=== PATIENT | female | born 1970 | race Caucasian/White ===

== ENCOUNTER → 2016-06-01 | Outpatient (CLI) | payer MEDICAID ==
--- NOTE | 2016-06-02 07:52 | XR ---
EXAMINATION TYPE: XR foot complete RT DATE OF EXAM: 06/01/2016 11:56 AM COMPARISON: NONE HISTORY: Pain Severe arthropathy and hypertrophic change first MTP joint. Calcaneal spur noted.. There is no acute fracture or dislocation. IMPRESSION: 1. No acute fracture or dislocation. If symptoms persist, follow-up exam in 7 to 10 days could be ob tained.
--- NOTE | 2016-06-02 07:54 | XR ---
EXAM TYPE: LUMBAR SPINE X RAY SERIES COMPARISON: NONE HISTORY: Back and foot pain with lower leg numbness FINDINGS: Alignment is anatomic. The pedicles are intact. The transverse processes are intact. There is no s pondylolysis or spondylolisthesis. There is sclerosis of the SI joints. The right suggestive of sacroiliitis. Vascular calcifications ar e noted. There is multilevel hypertrophic change and mild degenerative disc disease. Sclerosis of the pars interarticularis noted at L5 bilaterally without evidence of obvious defect. IMPRESSION: 1. Multilevel degenerative disc disease consider follow-up MRI. 2. Sacroiliitis
== END | disposition home or self-care (01) ==
LOC: RADXRYALE 10:53
PROVIDERS: ATTEND Internal Medicine
DX: M51.36 Other intervertebral disc degeneration, lumbar region (principal); M46.1 Sacroiliitis, not elsewhere classified; M79.671 Pain in right foot
CPT/HCPCS: 72110

== ENCOUNTER → 2016-06-15 | Outpatient (CLI) | payer MEDICAID ==
--- NOTE | 2016-06-16 07:47 | CT ---
EXAMINATION TYPE: CT lumbar spine w con DATE OF EXAM: 06/15/2016 8:06 PM COMPARISON: NONE HISTORY: Right leg numbness below knee. CT DLP: 983.00 mGycm Automated exposure control for dose reduction was used. CONTRAST: CT scan of the lumbar is performed with IV Contrast, patient injected with 100 mL of Omnipaque 300. Enhanced CT of the lumbar spine was performed. Bone and soft tissue window settings are submitted as well as coronal and sagittal reconstructions. There is a large, 3.8 x 2.1 x 2.1 cm right adrenal mass. This has a mean Hounsfield value of 53.6 Ina nsfield units. This is not the classic appearance of a benign adenoma. There is moderate atheromatous calcification of the igiugig vessels. Paraspinal soft tissues are other maynard normal. The bilateral lysis at L5 with a grade 1 spondylolisthesis of L5 on S1. Vertebral body height and ali gnment otherwise well maintained. At T12-L1, no discrete abnormality is seen. L1-L2: Normal disc space height. No disc herniation protrusion or central stenosis. No facet joint arthropathy. No evidence for foraminal encroachment. L2-L3: There is a mild, diffuse disc displacement. This is effacing the thecal sac. The intervertebra l foramina are maintained. The facets are unremarkable. L3-L4: There is a mild, diffuse disc displacement. The intervertebral foramina are well maintained. T here is minimal facet arthropathy. L4-L5: There is a diffuse disc displacement. The intervertebral foramina are reasonably well-maintain ed. There is moderate facet arthropathy. L5-S1: There is disc space loss. There is a bilateral lysis at L5. There is a grade 1 spondylolisthes is of L5 on S1. There is a prominent pseudodisc. The intervertebral foramina appear reasonably well-m aintained. IMPRESSION: 1. Bilateral lysis of L5 with a grade 1 spondylolisthesis of L5 on S1. 2. No significant compressive discopathy or neural compression. 3. Mild degenerative disc disease extending from L2-3 through L4-5.
== END | disposition home or self-care (01) ==
LOC: RADCTMAIN 19:30
PROVIDERS: ATTEND Internal Medicine
DX: M43.17 Spondylolisthesis, lumbosacral region (principal); M51.36 Other intervertebral disc degeneration, lumbar region
CPT/HCPCS: 72132; Q9967

== ENCOUNTER → 2017-01-25 | Outpatient (CLI) | payer MEDICAID ==
--- NOTE | 2017-01-25 11:33 | MM ---
Reason for exam: clinical finding. Last mammogram was performed 5 years and 10 months ago. History: Patient has history of other cancer at age 24. Physical Findings: Nurse Summary: 1 x 1cm nodule in the right breast at 10 o'clock (nurse ts). MG Diagnostic Mammo w CAD JANAY Bilateral CC and MLO view(s) were taken. Prior study comparison: March 31, 2011, bilateral digital screening mammo w/CAD. April 12, 2009, bilateral digital screening mammogram. There are scattered fibroglandular densities. Lucent mass deep to the palpable BB marker at 10 o'clock representing a benign sonographic cyst. No suspicious abnormality. These results were verbally communicated with the patient and result sheet given to the patient on 01/25/17. ASSESSMENT: Benign, BI-RAD 2 RECOMMENDATION: Routine screening mammogram of both breasts in 1 year.
--- NOTE | 2017-01-25 11:34 | USB ---
Reason for exam: clinical finding. History: Patient has history of other cancer at age 24. US Breast Limited LT Left breast ultrasound demonstrates a 0.6 x 0.6 x 0.4cm oval, cystic lesion at 9:30-10 o'clock at BB. These results were verbally communicated with the patient and result sheet given to the patient on 01/25/17. ASSESSMENT: Benign, BI-RAD 2 RECOMMENDATION: Routine screening mammogram of both breasts in 1 year.
== END | disposition home or self-care (01) ==
LOC: RADMAMWWP 10:00
PROVIDERS: ATTEND Internal Medicine
DX: N63 Unspecified lump in breast (principal)
CPT/HCPCS: 76642; G0204

== ENCOUNTER 2017-05-27 20:11 | Emergency (ER) | payer MEDICAID ==
[2017-05-27 20:17] VITALS: TEMP 97.2
--- NOTE | 2017-05-27 20:37 | ED ---
General Adult HPI - General Chief complaint: Chest Pain Stated complaint: chest pain/back pain Time Seen by Provider: 05/27/17 20:17 Source: patient, RN notes reviewed Mode of arrival: ambulatory Limitations: no limitations - History of Present Illness Initial comments: 46-year-old female presents for evaluation of chest pain. Pain is been constant since yesterday afternoon. Initial onset of pain was nonexertional. She has developed atraumatic upper back pain since the development of her anterior chest pain. Pain is described as constant pressure and tightness. Patient has also been burping. She has past medical history of hypertension, hyperlipidemia, she is a current smoker and has a strong family history of coronary artery disease. She denies any associated diaphoresis, or nausea vomiting. She does complain of bilateral shoulder pain as well. Patient has no known history of CAD, has had no cardiac testing today. Denies significant cough, denies dyspnea, denies fever or chills. Denies abdominal pain - Related Data Home Medications Medication Instructions Recorded Confirmed Amitriptyline HCl [Elavil] 25 mg PO Q2D 05/27/17 05/27/17 Atenolol [Tenormin] 25 mg PO DAILY 05/27/17 05/27/17 Cholecalciferol [Vitamin D3] 1,000 unit PO DAILY 05/27/17 05/27/17 Lovastatin [Mevacor] 20 mg PO DAILY 05/27/17 05/27/17 [place]-3 Fatty Acids/Fish Oil [Fish 1 cap PO DAILY 05/27/17 05/27/17 Oil 1,000 mg Softgel] Otc Sinus Tablets 1 tab PO DAILY PRN 05/27/17 05/27/17 Allergies Allergy/AdvReac Type Severity Reaction Status Date / Time No Known Allergies Allergy Verified 05/27/17 20:40 Review of Systems ROS Statement: Those systems with pertinent positive or pertinent negative responses have been documented in the HPI. ROS Other: All systems not noted in ROS Statement are negative. 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 History of Any Multi-Drug Resistant Organisms: None Reported Past Surgical History: Cholecystectomy, Hysterectomy Additional Past Surgical History / Comment(s): shunt placement Past Psychological History: No Psychological Hx Reported Smoking Status: Current every day smoker Past Alcohol Use History: None Reported Past Drug Use History: None Reported General Exam Limitations: no limitations General appearance: alert, in no apparent distress Head exam: Present: atraumatic, normocephalic Eye exam: Present: normal appearance, PERRL ENT exam: Present: normal exam Neck exam: Present: normal inspection. Absent: tenderness Respiratory exam: Present: normal lung sounds bilaterally. Absent: respiratory distress, wheezes Cardiovascular Exam: Present: regular rate, normal rhythm. Absent: bradycardia GI/Abdominal exam: Present: soft. Absent: distended, tenderness Extremities exam: Present: normal inspection, full ROM, normal capillary refill. Absent: pedal edema, calf tenderness Back exam: Present: normal inspection, full ROM Neurological exam: Present: alert, oriented X3, CN II-XII intact. Absent: motor sensory deficit Psychiatric exam: Present: normal affect, normal mood Skin exam: Present: warm, dry, intact. Absent: cyanosis, diaphoretic Course Vital Signs 05/27/17 05/27/17 05/27/17 20:13 20:23 20:55 Temperature 97.2 F L Pulse Rate 94 86 83 Respiratory 18 18 18 Rate Blood Pressure 175/92 149/75 126/66 O2 Sat by Pulse 98 97 98 Oximetry 05/27/17 05/27/17 21:46 22:38 Temperature Pulse Rate 74 72 Respiratory 18 20 Rate Blood Pressure 133/85 133/67 O2 Sat by Pulse 97 99 Oximetry EKG Findings - EKG Comments: EKG Findings:: EKG shows normal sinus rhythm, ventricular rate 89, HI interval 148, QRS duration 78, QTC [address] segment elevation or depression Medical Decision Making - Medical Decision Making 46-year-old female presenting for evaluation of chest pain. Laboratory studies are obtained, white blood cell count 11 hemoglobin stable 15.1, d-dimer is elevated at 1.46. Chest x-rays obtained, negative for acute cardiopulmonary disease, CT angiography is obtained for elevated d-dimer, negative for dissection or pulmonary embolism. I would prefer the patient would stay given her symptoms and risk factors, however she refuses admission. She like to go home and follow-up with her primary care physician. She will return to the emergency department with worsening symptoms. She believes her symptoms are related to indigestion and gas. Patient is having mild ongoing pain, I did discuss this with the patient that I had concern for cardiac causes of her pain. She is aware of this and still refuses admission. Diagnosis: Chest pain - Lab Data Result diagrams: 05/27/17 20:50 05/27/17 20:50 Lab Results 05/27/17 05/27/17 05/27/17 Range/Units 20:50 20:50 20:50 WBC 11.0 H (3.8-10.6) k/uL RBC 5.05 (3.80-5.40) m/uL Hgb 15.1 (11.4-16.0) gm/dL Hct 47.6 H (34.0-46.0) % MCV 94.3 (80.0-100.0) fL MCH 30.0 (25.0-35.0) pg MCHC 31.8 (31.0-37.0) g/dL RDW 14.1 (11.5-15.5) % Plt Count 292 (150-450) k/uL Neutrophils % 51 % Lymphocytes % 39 % Monocytes % 4 % Eosinophils % 2 % Basophils % 1 % Neutrophils # 5.7 (1.3-7.7) k/uL Lymphocytes # 4.4 (1.0-4.8) k/uL Monocytes # 0.5 (0-1.0) k/uL Eosinophils # 0.2 (0-0.7) k/uL Basophils # 0.1 (0-0.2) k/uL PT (9.0-12.0) sec INR (<1.2) APTT (22.0-30.0) sec D-Dimer (<0.60) mg/L FEU Sodium 138 (137-145) mmol/L Potassium 4.3 (3.5-5.1) mmol/L Chloride 100 (98-107) mmol/L Carbon Dioxide 29 (22-30) mmol/L Anion Gap 9 mmol/L BUN 14 (7-17) mg/dL Creatinine 0.80 (0.52-1.04) mg/dL Est GFR (MDRD) Af Amer >60 (>60 ml/min/1.73 sqM) Est GFR (MDRD) Non-Af >60 (>60 ml/min/1.73 sqM) Glucose 145 H (74-99) mg/dL Calcium 10.0 (8.4-10.2) mg/dL Magnesium 1.9 (1.6-2.3) mg/dL Total Bilirubin 0.3 (0.2-1.3) mg/dL AST 17 (14-36) U/L ALT 37 (9-52) U/L Alkaline Phosphatase 91 (38-126) U/L Total Creatine Kinase 26 L (30-135) U/L CK-MB (CK-2) 0.4 (0.0-2.4) ng/mL CK-MB (CK-2) Rel Index 1.5 Troponin I <0.012 (0.000-0.034) ng/mL NT-Pro-B Natriuret Pep pg/mL Total Protein 7.5 (6.3-8.2) g/dL Albumin 4.1 (3.5-5.0) g/dL Lipase 246 (23-300) U/L 05/27/17 05/27/17 Range/Units 20:50 20:50 WBC (3.8-10.6) k/uL RBC (3.80-5.40) m/uL Hgb (11.4-16.0) gm/dL Hct (34.0-46.0) % MCV (80.0-100.0) fL MCH (25.0-35.0) pg MCHC (31.0-37.0) g/dL RDW (11.5-15.5) % Plt Count (150-450) k/uL Neutrophils % % Lymphocytes % % Monocytes % % Eosinophils % % Basophils % % Neutrophils # (1.3-7.7) k/uL Lymphocytes # (1.0-4.8) k/uL Monocytes # (0-1.0) k/uL Eosinophils # (0-0.7) k/uL Basophils # (0-0.2) k/uL PT 9.6 (9.0-12.0) sec INR 1.0 (<1.2) APTT 23.5 (22.0-30.0) sec D-Dimer 1.46 H (<0.60) mg/L FEU Sodium (137-145) mmol/L Potassium (3.5-5.1) mmol/L Chloride (98-107) mmol/L Carbon Dioxide (22-30) mmol/L Anion Gap mmol/L BUN (7-17) mg/dL Creatinine (0.52-1.04) mg/dL Est GFR (MDRD) Af Amer (>60 ml/min/1.73 sqM) Est GFR (MDRD) Non-Af (>60 ml/min/1.73 sqM) Glucose (74-99) mg/dL Calcium (8.4-10.2) mg/dL Magnesium (1.6-2.3) mg/dL Total Bilirubin (0.2-1.3) mg/dL AST (14-36) U/L ALT (9-52) U/L Alkaline Phosphatase (38-126) U/L Total Creatine Kinase (30-135) U/L CK-MB (CK-2) (0.0-2.4) ng/mL CK-MB (CK-2) Rel Index Troponin I (0.000-0.034) ng/mL NT-Pro-B Natriuret Pep 12 pg/mL Total Protein (6.3-8.2) g/dL Albumin (3.5-5.0) g/dL Lipase (23-300) U/L Disposition Clinical Impression: Chest pain Disposition: HOME SELF-CARE Condition: Good Instructions: Chest Pain (ED) Additional Instructions: Please return to emergency department with worsening or changing symptoms. Referrals: Gaviota Du MD [Primary Care Provider] - 1-2 days Esther Miller MD [STAFF PHYSICIAN] - 1-2 days Time of Disposition: 23:28
[2017-05-27 21:14] LABS: Basophils # (A) 0.1 k/uL (0-0.2); Basophils % (A) 1 %; Eosinophils # (A) 0.2 k/uL (0-0.7); Eosinophils % (A) 2 %; HCT 47.6 % (34.0-46.0); HGB 15.1 gm/dL (11.4-16.0); Lymphocytes # (A) 4.4 k/uL (1.0-4.8); Lymphocytes % (A) 39 %; MCHC 31.8 g/dL (31.0-37.0); MCV 94.3 fL (80.0-100.0); Mean Platelet Volume 7.3; Monocytes # (A) 0.5 k/uL (0-1.0); Monocytes % (A) 4 %; Neutrophils # (A) 5.7 k/uL (1.3-7.7); Neutrophils % (A) 51 %; Platelet Count 292 k/uL (150-450); RBC 5.05 m/uL (3.80-5.40); RDW 14.1 % (11.5-15.5)
[2017-05-27] MEDS ORDERED: ACETAMINOPHEN TAB 500 MG TAB PO STA (21:14)
[2017-05-27 21:24] LABS: D-Dimer 1.46 mg/L FEU (<0.60)
[2017-05-27 21:26] LABS: ALT 37 U/L (9-52); AST 17 U/L (14-36); Albumin 4.1 g/dL (3.5-5.0); Alkaline Phosphatase 91 U/L (38-126); Anion Gap 9 mmol/L; Blood Urea Nitrogen 14 mg/dL (7-17); Carbon Dioxide 29 mmol/L (22-30); Chloride 100 mmol/L (98-107); Glucose 145 mg/dL (74-99); Lipase 246 U/L (23-300); Magnesium 1.9 mg/dL (1.6-2.3); Sodium 138 mmol/L (137-145); Total Bilirubin 0.3 mg/dL (0.2-1.3); Total Protein 7.5 g/dL (6.3-8.2)
[2017-05-27 21:28] LABS: Partial Thromboplastin Time 23.5 sec (22.0-30.0); Prothrombin Time 9.6 sec (9.0-12.0)
--- NOTE | 2017-05-27 21:28 | XR ---
EXAMINATION TYPE: XR chest 2V DATE OF EXAM: 05/27/2017 COMPARISON: 04/09/2014 HISTORY: Chest pain TECHNIQUE: Frontal and lateral views of the chest are obtained. FINDINGS: Heart and mediastinum are normal. Lungs are clear. Diaphragm is normal. Bony thorax is int act. There are chest leads. IMPRESSION: Normal chest. No change.
[2017-05-27 21:37] LABS: Creatine Kinase 26 U/L (30-135)
[2017-05-27] MEDS ORDERED: RX INFO: IV CONTRAST WAS GIVEN 1 EACH MISC MISCELLANE PRN (21:44)
[2017-05-27 21:50] LABS: Creatine Kinase MB 0.4 ng/mL (0.0-2.4); Troponin I <0.012 ng/mL (0.000-0.034)
[2017-05-27 22:03] LABS: Potassium 4.3 mmol/L (3.5-5.1)
--- NOTE | 2017-05-27 22:21 | CT ---
EXAMINATION TYPE: CT angio chest DATE OF EXAM: 05/27/2017 10:14 PM COMPARISON: NONE HISTORY: SOB, r/o PE CT DLP: 575.30 mGycm Automated exposure control for dose reduction was used. CONTRAST: CTA scan of the thorax is performed with IV Contrast, patient injected with 75ml mL of Omnipaque 350, pulmonary embolism protocol. There are 3-D post processed images.. FINDINGS: There is coarse interstitial density in both lungs without evidence of a pulmonary mass. There is no pleural effusion. There is no sign of aortic aneurysm or dissection. I see no filling defects in the pulmonary arteries . There are a few nonspecific mediastinal endobronchial lymph nodes that measure less than 1 cm. Ther e is no pericardial effusion. I see no bony destructive process. There is spurring in the thoracic sp ine. IMPRESSION: NO EVIDENCE OF PULMONARY EMBOLISM. INTERSTITIAL FIBROTIC CHANGES.
[2017-05-27 23:45] VITALS: BP 148/92; PULSE 77; RESP 16
== END 2017-05-27 23:45 | disposition home or self-care (01) ==
LOC: EC 20:11
DX: R07.89 Other chest pain (principal); M54.6 Pain in thoracic spine; I10 Essential (primary) hypertension; M25.511 Pain in right shoulder; M25.512 Pain in left shoulder; E78.5 Hyperlipidemia, unspecified; F17.200 Nicotine dependence, unspecified, uncomplicated; Z79.899 Other long term (current) drug therapy; Z82.49 Family history of ischemic heart disease and other diseases of the circulatory system
CPT/HCPCS: 36415; 93005; 85379; 83880; 80053; 82550; 82553; 83690; 83735; 84484; 85025; 85610; 85730; 71020; 71275; 99285; Q9967

== ENCOUNTER → 2020-04-27 | Outpatient (CLI) | payer BC | END | disposition home or self-care (01) | LOC: LABWHC1 16:32 | PROVIDERS: ATTEND Internal Medicine | DX: Z20.828 Contact with and (suspected) exposure to other viral communicable diseases (principal) | CPT/HCPCS: U0003; C9803 ==

== ENCOUNTER → 2022-01-31 | Outpatient (CLI) | payer OTHER | END | disposition home or self-care (01) | LOC: RADCTMAIN 11:52 | PROVIDERS: ATTEND Internal Medicine | DX: R91.1 Solitary pulmonary nodule (principal) | CPT/HCPCS: 71250 ==